=== PATIENT | female | born 1950 | race Caucasian/White ===

== ENCOUNTER 2018-06-23 06:12 | Inpatient (IN) ==
[2018-06-18 12:15] LABS: Appearance,Urine CLEAR; Bilirubin,Urine NEG (NEG); Color,Urine COLORLESS; Glucose,Urine (UA) NEGATIVE (NEG); Leukocyte Esterase,Urine NEG /uL (NEG); Protein,Urine NEG (NEG); Specific Gravity,Urine 1.005 (1.000-1.035); Urine Blood NEG mg/dL (<0.03); Urobilinogen,Urine NEG (NEG)
[2018-06-18 12:27] LABS: Basophils # (Auto) 0.1 K/mcL (0.0-0.3); Eosinophils # (Auto) 0.2 K/mcL (0.0-0.7); Eosinophils % (Auto) 3.1 % (0.0-7.0); Granulocytes % (Auto) 46.6 % (38.0-78.0); Lymphocytes # (Auto) 2.2 K/mcL (1.5-4.8); Lymphocytes % (Auto) 41.3 % (15.5-49.0); Mean Cell Volume 94.4 fL (80.0-100.0); Mean Corpuscular HGB Conc 34.5 g/dL (31.0-36.0); Mean Corpuscular Hemoglobin 32.6 pg (26.0-34.0); Monocytes # (Auto) 0.4 K/mcL (0.1-0.9); Platelet Count 349 K/mcL (140-440); RBC 4.12 M/mcL (4.00-5.20); Red Cell Distribution Width 12.6 % (11.5-14.5)
[2018-06-18 12:41] LABS: Blood Urea Nitrogen 19 mg/dl (8-23)
[2018-06-23] MEDS ORDERED: SCOPOLAMINE 1 PATCH PATCH TOPICAL ONE (06:41)
[2018-06-23] MEDS ORDERED: CELECOXIB 200 MG CAPSULE PO SCH (07:00)
[2018-06-23] MEDS ORDERED: PREGABALIN 75 MG CAPSULE PO SCH (07:00)
[2018-06-23] MEDS ORDERED: oxyCODONE 10 MG TAB.ER.12H PO SCH (07:00)
[2018-06-23] MEDS ORDERED: 0.9 % SODIUM CHLORIDE 9 ML, KETOROLAC 30 MG, ROPIVACAINE HCL/PF 49.5 ML, EPINEPHrine 0.... IJ SCH (07:00)
[2018-06-23] MEDS ORDERED: ceFAZolin 1 GM VIAL IV SCH (07:00)
[2018-06-23] MEDS ORDERED: ACETAMINOPHEN 500 MG TABLET PO SCH (07:00)
[2018-06-23] MEDS ORDERED: ONDANSETRON 4 MG/2 ML VIAL IV ONE (07:45)
[2018-06-23] MEDS ORDERED: fentaNYL 100 MCG/2 ML VIAL IV ONE (07:45)
[2018-06-23] MEDS ORDERED: DEXAMETHASONE 10 MG/ML VIAL IV ONE (07:45)
[2018-06-23] MEDS ORDERED: GLYCOPYRROLATE 0.2 MG/ML VIAL IV ONE (07:45)
[2018-06-23] MEDS ORDERED: MIDAZOLAM 2 MG/2 ML VIAL IV ONE (07:45)
[2018-06-23] MEDS ORDERED: TRANEXAMIC ACID 1,000 MG/10 ML VIAL IV ONE ×2 (07:45→09:23)
[2018-06-23] MEDS ORDERED: PHENYLEPHRINE 10 MG/ML VIAL IV ONE (07:45)
[2018-06-23] MEDS ORDERED: PROPOFOL 200 MG/20 ML VIAL IV ONE (07:45)
[2018-06-23] MEDS ORDERED: KETAMINE 100 MG/ML ML IV ONE (07:45)
[2018-06-23] MEDS ORDERED: LIDOCAINE HCL/PF 100 MG/5 ML SYRINGE IV ONE (07:45)
[2018-06-23] MEDS ORDERED: ROPIVACAINE HCL/PF 20 ML VIAL IJ ONE (07:45)
[2018-06-23] MEDS ORDERED: ePHEDrine 50 MG/ML AMPUL IV ONE (07:45)
[2018-06-23] MEDS ORDERED: GENTAMICIN SULFATE 800 MG/20 ML VIAL IR ONE (08:01)
[2018-06-23] MEDS ORDERED: BISACODYL 10 MG SUPP.RECT PR PRN (09:23)
[2018-06-23] MEDS ORDERED: TEMAZEPAM 15 MG CAPSULE PO PRN (09:23)
[2018-06-23] MEDS ORDERED: FLEETS ADULT ENEMA PR PRN (09:23)
[2018-06-23] MEDS ORDERED: ACETAMINOPHEN 325 MG TABLET PO PRN (09:23)
[2018-06-23] MEDS ORDERED: HYDROcodone/APAP 5/325MG TABLET PO PRN (09:23)
[2018-06-23] MEDS ORDERED: HYDROmorphone 2 MG/ML VIAL IV PRN (09:23)
[2018-06-23] MEDS ORDERED: BENZOCAINE/MENTHOL 1 LOZENGE PO PRN (09:23)
[2018-06-23] MEDS ORDERED: ONDANSETRON 4 MG/2 ML VIAL IV PRN (09:23)
[2018-06-23] MEDS ORDERED: POLYETHYLENE GLYCOL 3350 17 GM PACKET PO PRN (09:23)
[2018-06-23] MEDS ORDERED: ONDANSETRON ODT 4 MG TABLET SL PRN (09:23)
[2018-06-23] MEDS ORDERED: MAGNESIUM HYDROXIDE 30 ML ORAL.SUSP PO PRN (09:23)
[2018-06-23] MEDS ORDERED: ALBUTEROL SULFATE 1 PUFF INHALER INH PRN (09:27)
--- NOTE | 2018-06-23 09:43 | Brief Operative Note ---
Date of procedure: 06/23/18 Pre-op diagnosis: Left knee djd Post-op diagnosis: same Procedure: left knee tka Grafts/Implants: Yes Anesthesia: GETA Complications: none Surgeon: Toni Zelaya Recovery Manager: Yohannes Mullen Estimated blood loss (cc): 50 Tourniquet Time (Minutes): 65 Specimens Removed/Pathology: none sent Condition: stable Disposition: PACU
[2018-06-23] MEDS ORDERED: MEPERIDINE 25 MG/ML SYRINGE IV PRN (09:53)
[2018-06-23] MEDS ORDERED: fentaNYL 100 MCG/2 ML VIAL IV PRN (09:53)
[2018-06-23] MEDS ORDERED: PROMETHAZINE 25 MG/ML VIAL IV PRN ×2 (09:53→14:59)
[2018-06-23] MEDS ORDERED: IPRATROPIUM/ALBUTEROL 3 ML AMPUL.NEB NEB PRN (09:53)
[2018-06-23] MEDS ORDERED: METHOCARBAMOL 1,000 MG/10 ML VIAL IV PRN (09:53)
[2018-06-23] MEDS ORDERED: LACTATED RINGERS 1,000 ML IV SCH (10:00)
--- NOTE | 2018-06-23 10:39 | XRay Report ---
CLINICAL INFORMATION: Post-Op Total Knee COMPARISON: None. FINDINGS: Total knee prostheses is anatomically aligned. No osseous abnormality. Periarticular gas and soft tissue swelling seen as as expected IMPRESSION: Negative Interpreted and Authenticated by: Javier Menjivar 06/23/18
[2018-06-23] MEDS: 0.45 % SODIUM CHLORIDE 1,000 ML IV SCH ×2 (10:40→20:53)
--- NOTE | 2018-06-23 11:02 | Operative Note ---
DATE OF OPERATION: 06/23/2018 PREOPERATIVE DIAGNOSIS: Left knee degenerative arthritis. POSTOPERATIVE DIAGNOSIS: Left knee degenerative arthritis. PROCEDURE: Left total knee arthroplasty. SURGEON: Toni Zelaya M.D. NEWSPAPER EDITOR MANAGING: Yohannes Mullen PA-C. ANESTHESIA: General LMA anesthesia. COMPLICATIONS: None. TOURNIQUET TIME: Approximately 65 minutes. DESCRIPTION OF PROCEDURE: The patient was brought to the operating room, put to sleep with general LMA anesthesia. A timeout was performed confirming the operative site. Preop antibiotics and tranexamic acid given. Midline incision was made and midvastus approach. We opened the knee and showed severe arthritis in the medial compartment to be [id number], intact ACL and PCL, and severe arthritis of patellofemoral groove. With bone exposed in the patellofemoral groove and medial compartment arthritis, we proceeded with a total knee arthroplasty. We then brought in the robot, registered the center of hip rotation after placing pins above and below the knee, registered thirty points on the femur and the tibia. I balanced the knee, both at 90 degrees and 15 degrees of flexion, removed osteophytes and placed intraarticular pins. We registered the pins, registered the robot and then brought the robot in to make the cuts. We made the tibial cut and then the femoral cuts. We then trialed the components after removing the bone fragments and remnants of the meniscus. A size 3 component seemed to fit very well with 9 mm poly. This balanced the knee very well. We trialed an 11. This was too tight. We irrigated thoroughly and cemented into place the femur and the tibia. Excess cement was removed. We placed a 9 mm poly with a 33 mm patellar button. The patella measured a total thickness of 22 mm. This was cut to 14 mm and then cemented into place the patella. The patient tolerated this well. There was no complication. We irrigated and took the patient through range of motion once the cement was dried. Midvastus approach was closed with #1 Stratafix. Skin was closed with Stratafix and adhesive closure. Sterile bandage applied. RBH:larry Job ID: [id number] Doc ID: [id number] Toni Zelaya MD
[2018-06-23] MEDS: ACETAMINOPHEN 500 MG TABLET PO SCH ×3 (11:30→21:33)
[2018-06-23] MEDS: KETOROLAC 15 MG/ML VIAL IV SCH ×3 (12:16→23:55)
[2018-06-23] MEDS: ceFAZolin 1 GM VIAL IV SCH ×2 (14:00→20:53)
[2018-06-23] MEDS: 0.9 % SODIUM CHLORIDE 10 ML SYRINGE IV SCH ×2 (14:09→20:54)
[2018-06-23] MEDS: OMEPRAZOLE 20 MG CAPSULE PO SCH (17:26)
[2018-06-23] MEDS: DOCUSATE SODIUM 100 MG CAPSULE PO SCH (20:53)
[2018-06-23] MEDS: ASPIRIN 325 MG ENTERIC COATED TABLET PO SCH (20:53)
[2018-06-23] MEDS ORDERED: SENNOSIDES 1 TABLET PO SCH (21:00)
[2018-06-24] MEDS: ACETAMINOPHEN 500 MG TABLET PO SCH ×2 (04:14→11:41)
[2018-06-24] MEDS: KETOROLAC 15 MG/ML VIAL IV SCH ×2 (05:47→11:41)
[2018-06-24] MEDS: 0.9 % SODIUM CHLORIDE 10 ML SYRINGE IV SCH (05:48)
[2018-06-24] MEDS: OMEPRAZOLE 20 MG CAPSULE PO SCH (05:56)
[2018-06-24] MEDS ORDERED: LEVOTHYROXINE 125 MCG TABLET PO SCH (07:30)
[2018-06-24] MEDS: 0.45 % SODIUM CHLORIDE 1,000 ML IV SCH (07:47)
--- NOTE | 2018-06-24 07:54 | Orthopedic Progress Note ---
Subjective Patient information: Note initiated : 06/24/18 at 7:53 am Service Date, if different from initiated Date: [] Patient: Tricia Burns 68 y/o F admitted on 06/23/18 for Left Medial Ravi Uni Knee Arthroplasty Possible. Chief Complaint: [Pt is stable this morning on post operative day 2 without any significant concerns or complaints. Patients vital signs have remained stable. Patients dressing is dry and is grossly instact from a neurovascular and motor standpoint. Patients 10 point ROS is otherwise negative. ] Objective Vital signs: Vital Signs Temp Pulse Resp BP BP Pulse Ox 06/24/18 07:00 98.8 F 67 18 93/47 93 06/24/18 04:32 90 06/24/18 04:00 98 F 68 17 95/57 90 06/24/18 01:25 93 06/24/18 00:00 97.4 F 64 18 95/51 93 06/23/18 22:00 91 06/23/18 20:00 98 F 72 17 111/67 91 06/23/18 17:33 96 06/23/18 15:49 97.2 F 18 103/56 90 06/23/18 14:00 96 06/23/18 13:33 99/53 93 06/23/18 12:33 105/56 98 06/23/18 12:03 117/68 93 06/23/18 12:00 97.3 F 90 18 117/68 96 06/23/18 11:32 119/61 93 06/23/18 11:17 111/68 93 06/23/18 11:01 124/77 91 06/23/18 10:47 97.1 F 74 18 108/63 108/63 96 06/23/18 10:33 115/62 90 06/23/18 10:27 97.4 F 88 17 116/55 97 06/23/18 10:13 97.8 F 83 15 114/49 98 06/23/18 10:08 84 14 109/50 94 06/23/18 10:03 92 H 17 115/54 100 06/23/18 09:58 97.5 F 90 13 108/50 96 06/23/18 09:53 90 15 117/48 92 06/23/18 09:48 81 15 103/49 91 06/23/18 09:43 97.8 F 85 13 108/34 91 Intake and Output 06/23/18 06/24/18 06/24/18 21:59 05:59 13:59 Intake Total 2360 / 2360 895 / 895 1000 / 1000 Output Total 1260 / 1260 450 / 450 Balance 1100 / 1100 445 / 445 1000 / 1000 Intake: IV 1000 / 1000 1000 / 1000 Sodium Chloride 0.45% 1,000 ml 1000 / 1000 1000 / 1000 @ 100 mls/hr IV .Q10H MICKEY Rx#: [id number] Oral 1360 / 1360 895 / 895 Output: Void Amount 800 / 800 450 / 450 Emesis 460 / 460 Other: Meal chicken noodle soup, cranberry juice Percent of Meal Consumed 100% Feeding Ability Independent # Voids 1 1 Weight 202 lb 14.4 oz Intake & Output: Intake & Output 06/23/18 06/24/18 06/24/18 21:59 05:59 13:59 Intake Total 2360 / 2360 895 / 895 1000 / 1000 Output Total 1260 / 1260 450 / 450 Balance 1100 / 1100 445 / 445 1000 / 1000 Weight 202 lb 14.4 oz Intake: IV 1000 / 1000 1000 / 1000 Sodium Chloride 0.45% 1,000 ml 1000 / 1000 1000 / 1000 @ 100 mls/hr IV .Q10H IMCKEY Rx#: [id number] Oral 1360 / 1360 895 / 895 Output: Void Amount 800 / 800 450 / 450 Emesis 460 / 460 Other: Meal chicken noodle soup, cranberry juice Percent of Meal Consumed 100% Feeding Ability Independent # Voids 1 1 Incision: Yes healing Incision clean and dry: Yes Weight bearing status: full Neurological exam IM: Yes motor sensory intact, Yes neurovascular intact Extremities exam IM: Yes Foot pink and warm, Yes neurovascular intact - Labs CBC & BMP: 06/24/18 04:20 06/18/18 10:51 Labs: Orthopedic Labs 06/18/18 10:51 PT 13.2 INR 1.0 APTT 32 06/24/18 06/18/18 04:20 10:51 Hgb 13.4 Hct 32.7 L 38.9 Assessment and Plan (1) Hx of total knee arthroplasty The patient has been educated regarding dressing care, Physical Therapy recommendations, home exercises, restrictions, and follow up appointments. The patient has had all necessary DME prescribed. The patient has remained relatively stable during their hospital course. Status: Acute
--- NOTE | 2018-06-24 07:56 | Discharge Summary ---
Ortho Discharge - TKA - Patient Instructions Diet: Regular Diet Activity: activity as tolerated, weight bearing as tolerated Total Knee Protocol: For Total Knee: Start ROM RACHEL with stationary bike or rocking chair. Work on gaining full extension of knee. Posterior dislocation precautions provided. Hip abductor strengthening and gait training instructions provided. Apply Cryocuff as instructed. Dressing Care: May shower in 2 days - Problem Maintenance (1) Hx of total knee arthroplasty Status: Acute - Follow Up Plan Follow Up Appointments: Toni Zelaya MD [Physician] - 07/08/18 10:40 am Disposition: Home, Self-Care Prognosis: Good Rehab Potential: Good I certify that the patient requires SNF services: No Overall status at discharge: patient is progressing back to baseline - Orders For Discharge Prescriptions: Aspirin [Ecotrin] 325 mg PO BID #60 tab.ec Docusate Sodium [Colace] 100 mg PO BID #60 cap HYDROcodone/APAP 5/325MG [[place] 5-325Mg] 1 - 2 tab PO Q4HP PRN #75 tab PRN Reason: Pain Level 3-6
[2018-06-24] MEDS: ASPIRIN 325 MG ENTERIC COATED TABLET PO SCH (08:52)
[2018-06-24] MEDS: DOCUSATE SODIUM 100 MG CAPSULE PO SCH (08:52)
[2018-06-24] MEDS ORDERED: HYDROCHLOROTHIAZIDE 12.5 MG CAPSULE PO SCH (09:00)
[2018-06-24] MEDS ORDERED: LISINOPRIL 20 MG TABLET PO SCH (09:00)
[2018-06-24] MEDS ORDERED: LORATADINE 10 MG TABLET PO SCH (09:00)
== END 2018-06-24 14:00 | disposition home or self-care (01) | DRG 470 ==
LOC: SUR 06:12 → MEDSUR 10:30
PROVIDERS: ADMIT Orthopaedic Surgery; ATTEND Orthopaedic Surgery

== ENCOUNTER 2018-11-04 06:08 | Inpatient (IN) ==
[2018-10-30 11:57] LABS: Basophils # (Auto) 0.1 K/mcL (0.0-0.3); Basophils % (Auto) 0.9 % (0.0-2.0); Eosinophils # (Auto) 0.2 K/mcL (0.0-0.7); Eosinophils % (Auto) 3.1 % (0.0-7.0); Granulocytes % (Auto) 51.7 % (38.0-78.0); Lymphocytes # (Auto) 1.9 K/mcL (1.5-4.8); Lymphocytes % (Auto) 33.5 % (15.5-49.0); Mean Cell Volume 92.3 fL (80.0-100.0); Mean Corpuscular HGB Conc 35.3 g/dL (31.0-36.0); Mean Corpuscular Hemoglobin 32.6 pg (26.0-34.0); Monocytes # (Auto) 0.6 K/mcL (0.1-0.9); Monocytes % (Auto) 10.8 % (1.0-12.0); Platelet Count 390 K/mcL (140-440); RBC 4.21 M/mcL (4.00-5.20); Red Cell Distribution Width 12.4 % (11.5-14.5)
[2018-10-30 12:02] LABS: Appearance,Urine CLEAR; Bilirubin,Urine NEG (NEG); Color,Urine STRAW; Glucose,Urine (UA) NEGATIVE (NEG); Leukocyte Esterase,Urine NEG /uL (NEG); Protein,Urine NEG (NEG); Urine Blood NEG mg/dL (<0.03); Urobilinogen,Urine NEG (NEG)
[2018-10-30 13:27] LABS: Blood Urea Nitrogen 18 mg/dl (8-23)
[2018-11-04] MEDS ORDERED: SCOPOLAMINE 1 PATCH PATCH TOPICAL ONE (06:30)
[2018-11-04] MEDS ORDERED: 0.9 % SODIUM CHLORIDE 9 ML, KETOROLAC 30 MG, ROPIVACAINE HCL/PF 49.5 ML, EPINEPHrine 0.... IJ SCH (07:00)
[2018-11-04] MEDS ORDERED: ACETAMINOPHEN 500 MG TABLET PO SCH (07:00)
[2018-11-04] MEDS ORDERED: PREGABALIN 75 MG CAPSULE PO SCH (07:00)
[2018-11-04] MEDS ORDERED: oxyCODONE 10 MG TAB.ER.12H PO SCH (07:00)
[2018-11-04] MEDS ORDERED: CELECOXIB 200 MG CAPSULE PO SCH (07:00)
[2018-11-04] MEDS ORDERED: ceFAZolin 1 GM VIAL IV SCH (07:00)
[2018-11-04] MEDS ORDERED: ONDANSETRON 4 MG/2 ML VIAL IV ONE (09:35)
[2018-11-04] MEDS ORDERED: PROPOFOL 200 MG/20 ML VIAL IV ONE (09:35)
[2018-11-04] MEDS ORDERED: diphenhydrAMINE 50 MG/ML VIAL IV ONE (09:35)
[2018-11-04] MEDS ORDERED: ROPIVACAINE HCL/PF 20 ML VIAL IJ ONE (09:35)
[2018-11-04] MEDS ORDERED: DEXAMETHASONE 10 MG/ML VIAL IV ONE (09:35)
[2018-11-04] MEDS ORDERED: LIDOCAINE HCL/PF 100 MG/5 ML SYRINGE IV ONE (09:35)
[2018-11-04] MEDS ORDERED: TRANEXAMIC ACID 1,000 MG/10 ML VIAL IV ONE ×2 (09:35→11:02)
[2018-11-04] MEDS ORDERED: fentaNYL 100 MCG/2 ML VIAL IV ONE (09:35)
[2018-11-04] MEDS ORDERED: MIDAZOLAM 5 MG/5 ML VIAL IV ONE (09:35)
[2018-11-04] MEDS ORDERED: GLYCOPYRROLATE 0.2 MG/ML VIAL IV ONE (09:35)
[2018-11-04] MEDS ORDERED: KETAMINE 100 MG/ML ML IV ONE (09:35)
[2018-11-04] MEDS ORDERED: PHENYLEPHRINE 10 MG/ML VIAL IV ONE (09:35)
[2018-11-04] MEDS ORDERED: GENTAMICIN SULFATE 800 MG/20 ML VIAL IR ONE (10:08)
[2018-11-04] MEDS ORDERED: BUPIVACAINE 0.5% 50 ML VIAL IJ ONE (10:20)
[2018-11-04] MEDS ORDERED: DEXAMETHASONE 10 MG/ML VIAL IM ONE (10:20)
[2018-11-04] MEDS ORDERED: TRIAMCINOLONE ACETONIDE 40 MG/ML VIAL INTRAARTIC ONE (10:20)
[2018-11-04] MEDS ORDERED: ACETAMINOPHEN 1,000 MG/100 ML BOTTLE IV ONE (10:36)
[2018-11-04] MEDS ORDERED: NALOXONE HCL 0.4 MG/ML VIAL IV PRN (10:36)
[2018-11-04] MEDS ORDERED: FLUMAZENIL 0.1 MG/ML ML IV PRN (10:36)
[2018-11-04] MEDS ORDERED: fentaNYL 100 MCG/2 ML VIAL IV PRN (10:36)
[2018-11-04] MEDS ORDERED: ONDANSETRON 4 MG/2 ML VIAL IV PRN ×2 (10:36→11:02)
[2018-11-04] MEDS ORDERED: METHOCARBAMOL 1,000 MG/10 ML VIAL IV PRN (10:36)
[2018-11-04] MEDS ORDERED: HYDROmorphone 2 MG/ML VIAL IV PRN ×2 (10:36→11:02)
[2018-11-04] MEDS ORDERED: IPRATROPIUM/ALBUTEROL 3 ML AMPUL.NEB NEB PRN (10:36)
[2018-11-04] MEDS ORDERED: MEPERIDINE 25 MG/ML SYRINGE IV PRN (10:36)
[2018-11-04] MEDS ORDERED: LACTATED RINGERS 250 ML IV PRN (10:36)
[2018-11-04] MEDS ORDERED: BENZOCAINE/MENTHOL 1 LOZENGE PO PRN ×2 (10:36→11:02)
[2018-11-04] MEDS ORDERED: LACTATED RINGERS 1,000 ML IV SCH (10:45)
[2018-11-04] MEDS ORDERED: FLEETS ADULT ENEMA PR PRN (11:02)
[2018-11-04] MEDS ORDERED: BISACODYL 10 MG SUPP.RECT PR PRN (11:02)
[2018-11-04] MEDS ORDERED: ACETAMINOPHEN 325 MG TABLET PO PRN (11:02)
[2018-11-04] MEDS ORDERED: MAGNESIUM HYDROXIDE 30 ML ORAL.SUSP PO PRN (11:02)
[2018-11-04] MEDS ORDERED: POLYETHYLENE GLYCOL 3350 17 GM PACKET PO PRN (11:02)
[2018-11-04] MEDS ORDERED: TEMAZEPAM 15 MG CAPSULE PO PRN (11:02)
--- NOTE | 2018-11-04 11:02 | Brief Operative Note ---
Date of procedure: 11/04/18 Pre-op diagnosis: left knee djd severe Post-op diagnosis: same Procedure: lefty tka Grafts/Implants: Yes Anesthesia: GETA Complications: none Surgeon: Toni Zelaya Photostatic Copy Maker: Yohannes Mullen Estimated blood loss (cc): 50 Tourniquet Time (Minutes): 52 Specimens Removed/Pathology: none sent Condition: stable Disposition: PACU
[2018-11-04] MEDS ORDERED: ACETAMINOPHEN 500 MG TABLET PO PRN (11:05)
[2018-11-04] MEDS ORDERED: ALBUTEROL SULFATE 1 PUFF INHALER INH PRN (11:05)
[2018-11-04] MEDS ORDERED: DOCUSATE SODIUM 100 MG CAPSULE PO PRN (11:05)
[2018-11-04] MEDS ORDERED: LORATADINE 10 MG TABLET PO PRN (11:05)
--- NOTE | 2018-11-04 11:35 | Operative Note ---
DATE OF OPERATION: 11/04/2018 PREOPERATIVE DIAGNOSIS: Right knee degenerative arthritis. POSTOPERATIVE DIAGNOSIS: Right knee degenerative arthritis. PROCEDURE: Right total knee arthroplasty, robotic-assisted. SURGEON: Toni Zelaya MD ACTOR UNDERSTUDY: Yohannes Mullen PA-C ANESTHESIA: General LMA anesthesia. COMPLICATIONS: None. IMPLANTS PLACED: A size 3 femur and size 3 tibial baseplate from [employer] with a 9 mm poly. These were cemented components with a 33 mm cemented patellar button. ESTIMATED BLOOD LOSS: 50 mL TOURNIQUET TIME: Approximately 52 minutes. DESCRIPTION OF PROCEDURE: The patient was brought to the operating room and put to sleep with general LMA anesthesia. Once asleep, the patient had the right knee sterilely prepped and draped in the usual sterile fashion. Once done, we then made a midline incision, a mid vastus approach performed. Once done, we then placed the pins above and below the knee and registered the center of hip rotation. Once the center of hip rotation was set, the registration of the thirty points in the joint and the intraarticular pin was confirmed. We balanced the knee at 90 and 15 degrees. We then brought in the robot and made the bony cuts. This balanced perfectly as preoperatively planned. I then trialed the components size 3 femur, size 3 tibial baseplate with a 9 mm poly on the right knee. These all matched perfectly. The patella was resurfaced with a 33 mm patellar on the right knee. There were no complications. After this all fit very nicely we let the skin dry, removed any excess cement and did thorough irrigation. We then closed the mid vastus approach with #1 Stratafix x2, closed the skin with #1 Stratafix and 2-0 Vicryl and adhesive closure. There were no complications. We put a sterile bandage on the knee. RBH:jaclyn Job ID: [id number] Doc ID: [id number] Toni Zelaya MD
--- NOTE | 2018-11-04 11:50 | XRay Report ---
CLINICAL INFORMATION: post-op COMPARISON: None. FINDINGS: Total knee prostheses is anatomically aligned. No osseous normality. Soft tissues swelling seen as expected. IMPRESSION: Negative Interpreted and Authenticated by: Javier Menjivar 11/04/18
[2018-11-04] MEDS: KETOROLAC 15 MG/ML VIAL IV SCH ×3 (12:11→23:41)
[2018-11-04] MEDS: 0.45 % SODIUM CHLORIDE 1,000 ML IV SCH ×2 (12:12→22:27)
[2018-11-04] MEDS: ceFAZolin 1 GM VIAL IV SCH ×2 (14:56→21:42)
[2018-11-04] MEDS: 0.9 % SODIUM CHLORIDE 10 ML SYRINGE IV SCH ×2 (14:56→20:51)
--- NOTE | 2018-11-04 16:25 | Discharge Summary ---
Ortho Discharge - TKA - Patient Instructions Diet: Regular Diet Activity: activity as tolerated, weight bearing as tolerated Total Knee Protocol: For Total Knee: Start ROM RACHEL with stationary bike or rocking chair. Work on gaining full extension of knee. Posterior dislocation precautions provided. Hip abductor strengthening and gait training instructions provided. Apply Cryocuff as instructed. Dressing Care: May shower in 2 days - Follow Up Plan Follow Up Appointments: Yohannes Mullen PA-C [Physician Wire Temperer] - Disposition: Home, Self-Care Prognosis: Good Rehab Potential: Good I certify that the patient requires SNF services: No Overall status at discharge: patient is progressing back to baseline - Orders For Discharge Prescriptions: Aspirin [Ecotrin] 325 mg PO BID #60 tab.ec Docusate Sodium [Colace] 100 mg PO BID #60 cap HYDROcodone/APAP 10/325MG [[place] 10-325Mg] 1 - 2 tab PO Q4HP PRN #75 tab PRN Reason: Pain Level 3-6
[2018-11-04] MEDS: OMEPRAZOLE 20 MG CAPSULE PO SCH (17:33)
[2018-11-04] MEDS: ASPIRIN 325 MG ENTERIC COATED TABLET PO SCH (20:51)
[2018-11-04] MEDS: DOCUSATE SODIUM 100 MG CAPSULE PO SCH (20:51)
[2018-11-04] MEDS: HYDROcodone/APAP 10/325MG TABLET PO PRN (20:51)
[2018-11-04] MEDS ORDERED: SENNOSIDES 1 TABLET PO SCH (21:00)
[2018-11-05] MEDS: HYDROcodone/APAP 10/325MG TABLET PO PRN ×2 (04:26→09:40)
[2018-11-05] MEDS: KETOROLAC 15 MG/ML VIAL IV SCH (05:22)
[2018-11-05] MEDS: 0.9 % SODIUM CHLORIDE 10 ML SYRINGE IV SCH (05:23)
[2018-11-05] MEDS: OMEPRAZOLE 20 MG CAPSULE PO SCH (06:52)
[2018-11-05] MEDS: 0.45 % SODIUM CHLORIDE 1,000 ML IV SCH (07:10)
--- NOTE | 2018-11-05 07:18 | Orthopedic Progress Note ---
Subjective Patient information: Note initiated : 11/05/18 at 7:17 am Service Date, if different from initiated Date: [] Patient: Tricia Burns 68 y/o F admitted on 11/04/18 for Right Robotic Total Knee Arthroplasty . Chief Complaint: [Pt is stable this morning on post operative day 1 without any significant concerns or complaints. Patients vital signs have remained stable. Patients dressing is dry and is grossly intact from a neurovascular and motor standpoint. Patients 10 point ROS is otherwise negative. ] Objective Vital signs: Vital Signs Temp Pulse Pulse Resp BP BP Pulse Ox 11/05/18 07:09 98.2 F 20 93/57 92/56 92 11/05/18 04:00 98.3 F 58 L 20 90/52 92 11/05/18 00:00 97.8 F 63 20 97/54 94 11/04/18 19:48 97.4 F 62 24 H 102/53 90 11/04/18 16:00 97.6 F 66 132/73 92 11/04/18 13:31 88 105/64 98 11/04/18 13:01 68 102/83 97 11/04/18 12:46 92 H 104/88 96 11/04/18 12:30 70 103/50 96 11/04/18 12:15 78 100/52 95 11/04/18 12:01 83 119/50 99 11/04/18 12:00 86 16 95 11/04/18 11:46 96.9 F L 84 19 122/40 98 11/04/18 11:30 82 15 105/45 98 11/04/18 11:25 91 H 16 81/48 109/58 100 11/04/18 11:20 74 16 109/43 100 11/04/18 11:14 97.1 F 91 H 16 109/43 100 11/04/18 07:54 97.5 F 86 18 130/67 93 Intake and Output 11/04/18 11/05/18 11/05/18 21:59 05:59 13:59 Intake Total 1760 / 1760 1150 / 1150 Output Total 1850 / 1850 1575 / 1575 Balance -90 / -90 -425 / -425 Intake: IV 1000 / 1000 Sodium Chloride 0.45% 1,000 ml 1000 / 1000 @ 100 mls/hr IV .Q10H MICKEY Rx#: [id number] Oral 1760 / 1760 150 / 150 Output: Void Amount 1850 / 1850 1575 / 1575 Other: Meal Dinner Percent of Meal Consumed 100% Feeding Ability Independent Urine Appearance Clear Clear Urine Color Pale Pale Urine Odor Normal Normal Weight 208 lb Intake & Output: Intake & Output 11/04/18 11/05/18 11/05/18 21:59 05:59 13:59 Intake Total 1760 / 1760 1150 / 1150 Output Total 1850 / 1850 1575 / 1575 Balance -90 / -90 -425 / -425 Weight 208 lb Intake: IV 1000 / 1000 Sodium Chloride 0.45% 1,000 ml 1000 / 1000 @ 100 mls/hr IV .Q10H MICKEY Rx#: [id number] Oral 1760 / 1760 150 / 150 Output: Void Amount 1850 / 1850 1575 / 1575 Other: Meal Dinner Percent of Meal Consumed 100% Feeding Ability Independent Urine Appearance Clear Clear Urine Color Pale Pale Urine Odor Normal Normal Incision: Yes healing Incision clean and dry: Yes Dressing: Yes clean Weight bearing status: full Neurological exam IM: Yes motor sensory intact, Yes neurovascular intact Extremities exam IM: Yes Foot pink and warm, Yes neurovascular intact - Labs CBC & BMP: 11/05/18 04:20 10/30/18 09:38 Labs: Orthopedic Labs 10/30/18 09:38 PT 12.7 INR 1.0 APTT 33 11/05/18 10/30/18 04:20 09:38 Hgb 13.7 Hct 33.0 L 38.9 Assessment and Plan (1) Hx of total knee arthroplasty Leave Dermabond patch intact until followup Status: Acute
[2018-11-05] MEDS ORDERED: LEVOTHYROXINE 125 MCG TABLET PO SCH (07:30)
[2018-11-05] MEDS: DOCUSATE SODIUM 100 MG CAPSULE PO SCH (08:11)
[2018-11-05] MEDS: ASPIRIN 325 MG ENTERIC COATED TABLET PO SCH (08:11)
[2018-11-05] MEDS ORDERED: MAGNESIUM OXIDE 400 MG TABLET PO SCH (09:00)
[2018-11-05] MEDS ORDERED: LISINOPRIL/HCTZ 20/12.5MG TABLET PO SCH (09:00)
[2018-11-05] MEDS ORDERED: CALCIUM (OYSTER SHELL) 500 MG TABLET PO SCH (09:00)
[2018-11-05] MEDS ORDERED: LISINOPRIL 20 MG TABLET PO SCH (09:00)
[2018-11-05] MEDS ORDERED: HYDROCHLOROTHIAZIDE 12.5 MG CAPSULE PO SCH (09:00)
== END 2018-11-05 09:57 | disposition home or self-care (01) | DRG 554 ==
LOC: MEDSUR 06:08
PROVIDERS: ADMIT Orthopaedic Surgery; ATTEND Orthopaedic Surgery
PROC: [UNRECOGNIZED PROCEDURE] (2018-11-04 09:31)
CPT/HCPCS: 97161

== ENCOUNTER 2019-10-15 12:07 | Inpatient (IN) ==
--- NOTE | 2019-10-15 12:18 | Emergency Department Note ---
General Adult HPI - General Chief complaint: Recheck/Abnormal Lab/Rx Stated complaint: post CPR Time Seen by Provider: 10/15/19 12:11 Source: patient Mode of arrival: ambulatory Limitations: no limitations - History of Present Illness HPI Narrative: This patient was down in the OR being induced for foot surgery when there was concern that she had developed PEA. They could not feel pulses but her monitor rhythm continued and a chronic left bundle branch pattern. She did receive 2 minutes of compressions and a dose of epinephrine and atropine. She was intubated, bagged and seemed to respond. She is brought down to the ER now for further evaluation before admission. She is still sedated from the induction. - Related Data Home Medications Medication Instructions Recorded Confirmed Acetaminophen [Tylenol Extra 500 mg PO Q6HP PRN 06/18/18 10/15/19 Strength] Albuterol Sulfate [Ventolin] 1 puff INH Q4HP PRN 06/18/18 10/15/19 Levothyroxine [Synthroid] 100 mcg PO DAILY 06/18/18 10/15/19 Loratadine [Claritin] 10 mg PO DAILYP PRN 06/18/18 10/15/19 Omeprazole [Prilosec] 40 mg PO AC 06/18/18 10/15/19 Calcium (Oyster Shell) [Oscal] 500 mg PO DAILY 10/30/18 10/15/19 Docusate Sodium [Colace] 100 mg PO BIDP PRN 10/30/18 10/15/19 Magnesium Oxide 400 mg PO DAILY 10/30/18 10/15/19 Lisinopril [Zestril] 20 mg PO DAILY 10/13/19 10/15/19 Red Yeast Rice 1,200 mg PO DAILY 10/13/19 10/15/19 Allergies Allergy/AdvReac Type Severity Reaction Status Date / Time egg Allergy Severe Anaphylaxis Verified 10/15/19 12:15 cinnamon Allergy Mild Swelling Verified 10/15/19 12:15 iodine Allergy Mild Other Verified 10/15/19 12:15 Tetracyclines Allergy Mild Hives Verified 10/15/19 12:15 codeine AdvReac Mild Itching Verified 10/15/19 12:15 walnut AdvReac Mild Blister Verified 10/15/19 12:15 Review of Systems All systems ED: reviewed and negative except as stated. Past Medical History - Past Medical History Surgical history ED: Reports: orthopedic, other - Social History smoking status: Never smoker Physical Exam Limitations: no limitations General appearance: alert Head: atraumatic Eye: Present: normal appearance ENT: Present: normal exam Neck: Present: normal inspection Chest: Present: normal inspection Respiratory: Present: normal lung sounds bilaterally Cardiovascular: Present: regular rate, normal rhythm, normal heart sounds Abdominal: Present: soft. Absent: distention, tenderness Neurological: Present: alert Psychiatric: Present: normal affect Skin: Present: warm, dry Course Vital Signs Temperature 96.6 F L 10/15/19 12:08 Pulse Rate 124 H 10/15/19 12:08 Respiratory Rate 20 10/15/19 12:08 Blood Pressure 177/108 10/15/19 12:08 Pulse Oximetry (%) 97 10/15/19 12:08 Temperature 96.6 F L 10/15/19 12:08 Pulse Rate 80 10/15/19 15:12 Respiratory Rate 18 10/15/19 15:12 Blood Pressure 134/81 10/15/19 15:12 Pulse Oximetry (%) 100 10/15/19 15:12 Medical Decision Making - [facility] Narrative Medical decision making narrative: This patient is awake but a little bit confused. CT and labs were unremarkable. She will be admitted to the hospital by Dr. Justin. - Lab Data Lab results reviewed: Yes I reviewed the patient's lab results. - Radiology Data Radiology results reviewed: Yes I reviewed the patient's radiology results. Disposition Pt seen by CONTACT CENTER SPECIALIST/PA only: No Clinical Impression: Cardiopulmonary arrest Disposition: Xfer As Inpt ([facility]) Condition: Good Referrals: Allison Cotton ARNP [Primary Care Provider] - Time of Disposition: 15:30
--- NOTE | 2019-10-15 12:46 | XRay Report ---
HISTORY: Follow-up after intraoperative CPR FINDINGS: There is mild haziness in the lung parenchyma bilaterally and the pulmonary vessels are mildly engorged. This may be fluid overload or mild pulmonary vascular congestion. The heart is borderline enlarged but magnified by portable technique. There is no consolidating infiltrate, pneumothorax, pleural effusion or evidence of aspiration. IMPRESSION: Fluid overload versus mild pulmonary vascular congestion Interpreted and Authenticated by: Pollo Yanez 10/15/19
--- NOTE | 2019-10-15 13:42 | Cat Scan Report ---
History: Confusion, arising after CPR performed in the operating room TECHNIQUE: The brain was imaged without contrast at 2.5 mm intervals. The radiation exposure was limited using dose reduction technology. FINDINGS: The brain appears normal without evidence of hemorrhage, infarct, edema or mass effect. The ventricles and cisterns are normal. There is very little degenerative change. No abnormal extra-axial fluid collection is present. Patient has small air-fluid level in the left maxillary sinus and there is moderate right ethmoid sinusitis. IMPRESSION: Normal brain Dr. Saba was called with the results Interpreted and Authenticated by: Pollo Yanez 10/15/19
--- NOTE | 2019-10-15 15:08 | Event Note ---
Followed up with patient, brother, and accompanying friend in the emergency room. Family and friend updated regarding events in the operating room and current plan of care. Patient more awake than previous but remains intermittently confused and unable to recognize friend. Patient able to state name and date of . Dr. Saba again updated regarding cardiac rhythm changes that resulted after desaturation and subsequent events of ACLS. Please see anesthesia record for detailed note.
--- NOTE | 2019-10-15 16:05 | Internal Med History&Physical ---
Medical - H&P: [facility] Patient information: Note initiated : 10/15/19 at 3:55 pm Service Date, if different from initiated Date: [] Patient: Tricia Burns a 69 y/o F admitted on for Post CPR. Chief Complaint: [] History of present illness: Ms. Burns is a 69 year old F Transferred from the OR to the ED for PEA arrest. Patient was undergoing induction anesthesia and airway was being placed and it sounds like there was some difficulty with placement and laryngospasm and then patient lost pulse while cardiac rhythm maintained on monitor. CPR was initiated for 2-3 minutes, given atropine and epinephrine with ROSC. She was intubated during code and eventually extubated prior to transfer to ED. Laboratory work was done troponin and CK-MB were unremarkable. EKG did show some T wave inversions in the lateral leads, which improved on follow-up EKG in the ED. Chest x-ray with some pulmonary vascular congestion otherwise unremarkable. CT brain unremarkable. She gradually came to and in the ER when I visited her she was completely awake oriented and back to baseline. She is having some chest wall discomfort from the CPR but otherwise no other chest pain. No shortness of breath. No headache nausea vomiting. She does have a sore throat but no other complaints Patient denies any cardiac history. Review of Systems: Pertinent positives as above. Denies headache/fever/chills/nausea/vomiting/abdominal pain/cough/dyspnea/diarrhea. Many 10 point review of system reviewed negative. Medical - H&P: PMH Medical history: Past medical history: Hypertension GERD Hypothyroidism Past surgical history: Bilateral total knee arthroplasty Hysterectomy Right foot Tonsillectomy Family history: Father heart disease and of an AL at 58 Mother had heart disease Social history: Patient denies tobacco or alcohol lives by herself Medical - H&P: Meds Home Medications Medication Instructions Recorded Confirmed Type Acetaminophen [Tylenol Extra 500 mg PO Q6HP PRN 06/18/18 10/15/19 History Strength] Albuterol Sulfate [Ventolin] 1 puff INH Q4HP PRN 06/18/18 10/15/19 History Levothyroxine [Synthroid] 100 mcg PO DAILY 06/18/18 10/15/19 History Loratadine [Claritin] 10 mg PO DAILYP PRN 06/18/18 10/15/19 History Omeprazole [Prilosec] 40 mg PO AC 06/18/18 10/15/19 History Calcium (Oyster Shell) [Oscal] 500 mg PO DAILY 10/30/18 10/15/19 History Docusate Sodium [Colace] 100 mg PO BIDP PRN 10/30/18 10/15/19 History Magnesium Oxide 400 mg PO DAILY 10/30/18 10/15/19 History Lisinopril [Zestril] 20 mg PO DAILY 10/13/19 10/15/19 History Red Yeast Rice 1,200 mg PO DAILY 10/13/19 10/15/19 History Allergies Allergy/AdvReac Type Severity Reaction Status Date / Time egg Allergy Severe Anaphylaxis Verified 10/15/19 12:15 cinnamon Allergy Mild Swelling Verified 10/15/19 12:15 iodine Allergy Mild Other Verified 10/15/19 12:15 Tetracyclines Allergy Mild Hives Verified 10/15/19 12:15 codeine AdvReac Mild Itching Verified 10/15/19 12:15 walnut AdvReac Mild Blister Verified 10/15/19 12:15 Medical - H&P: Exam - Constitutional Vitals: Temp Pulse Resp BP Pulse Ox 96.6 F L 89 16 146/78 98 10/15/19 12:08 10/15/19 15:43 10/15/19 15:43 10/15/19 15:43 10/15/19 15:43 Exam: General: Alert, Awake, No acute Distress, obese Eyes/N/T: EOMI, PEERL, Head/Neck: neck supple, normocephalic atraumatic CV: RRR, No murmurs, normal s1/s2 Pulm: Clear b/l, no wheezing/rhonchi/rales Abd: soft, nontender, +BS x4 Ext: no clubbing/cyanosis/edema Neuro: Alert and oriented, no focal deficits, moves all extremities, CN 2-12 grossly intact, symmetrical strength b/l upper/lower, sensations intact b/l upper/lower Skin: warm/dry Medical - H&P: Reslt - Impressions Chest x-ray some point of basilar congestion and CT brain unremarkable Medical - H&P: A/P - Narrative A/P Narrative: A: *PEA Arrest while undergoing induction of Anesthesia and airway placement with difficult airway: episode likely 2/2 hypoxia -no arrhythmia's during code -EKG with lateral lead t-wave inversions that resolved on f/u EKG. prolong QT but no arrhythmia's noted -CKMB/Trop neg -Pt is awake/alert/back to baseline *HTN: *GERD: *Hypothyroidism: *Obesity: * P: -monitor closely -f/u Trop in AM -echo pending -ASA -check lipids -cont home meds - -ppx: lovenox/home ppi
[2019-10-15] MEDS ORDERED: ONDANSETRON 4 MG/2 ML VIAL IV PRN (17:51)
[2019-10-15] MEDS ORDERED: HYDROcodone/APAP 5/325MG TABLET PO PRN (17:51)
[2019-10-15] MEDS ORDERED: MAGNESIUM SULFATE 2 GM/50 ML BAG IV PRN (17:51)
[2019-10-15] MEDS ORDERED: PROMETHAZINE 25 MG TABLET PO PRN (17:51)
[2019-10-15] MEDS ORDERED: ASPIRIN 81 MG TAB.CHEW CHEWED ONE (17:51)
[2019-10-15] MEDS ORDERED: SENNOSIDES 1 TABLET PO PRN (17:51)
[2019-10-15] MEDS ORDERED: IPRATROPIUM/ALBUTEROL 3 ML AMPUL.NEB NEB PRN (17:51)
[2019-10-15] MEDS ORDERED: POTASSIUM CHLORIDE 20 MEQ TABLET PO PRN ×2 (17:51)
[2019-10-15] MEDS ORDERED: POLYETHYLENE GLYCOL 3350 17 GM PACKET PO PRN (17:51)
[2019-10-15] MEDS ORDERED: POTASSIUM CHLORIDE 40 MEQ in DEXTROSE 5% IN WATER 500 ML IV PRN (17:51)
[2019-10-15] MEDS ORDERED: FAMOTIDINE 20 MG TABLET PO SCH (21:00)
[2019-10-15] MEDS ORDERED: ALBUTEROL SULFATE 1 PUFF INHALER INH PRN (21:08)
[2019-10-15] MEDS ORDERED: ACETAMINOPHEN 500 MG TABLET PO PRN (21:08)
[2019-10-15] MEDS: DOCUSATE SODIUM 100 MG CAPSULE PO SCH (21:26)
[2019-10-15] MEDS: 0.9 % SODIUM CHLORIDE 10 ML SYRINGE IV SCH (22:00)
[2019-10-16] MEDS: 0.9 % SODIUM CHLORIDE 10 ML SYRINGE IV SCH (05:44)
[2019-10-16 06:34] LABS: ALT/SGPT 18 U/l (0-40); AST/SGOT 17 U/l (0-37); Albumin 3.9 gm/dL (3.2-5.2); Albumin/Globulin Ratio 1.3 (1.0-2.3); Alkaline Phosphatase 95 U/L (39-117); Bilirubin,Direct < 0.2 mg/dL (0.0-0.3); Bilirubin,Total 0.3 mg/dL (0.0-1.0); Blood Urea Nitrogen 23 mg/dl (8-23); Calcium 9.1 mg/dl (8.6-10.4); Carbon Dioxide 24 mmol/L (22-30); Chloride 105 mmol/L (96-108); Glomerular Filtration Rate 66; Glucose 107 mg/dL (70-105); Lactate Dehydrogenase 205 U/L (94-250); Phosphorous 4.6 mg/dL (2.7-4.5); Triglycerides 92 mg/dl (<150); Uric Acid 5.8 mg/dL (2.5-8.0)
[2019-10-16] MEDS ORDERED: LEVOTHYROXINE 100 MCG TABLET PO SCH (07:30)
[2019-10-16] MEDS ORDERED: OMEPRAZOLE 20 MG CAPSULE PO SCH (07:30)
--- NOTE | 2019-10-16 07:34 | Internal Med Progress Note ---
Medical - PN: Subj Patient information: Note initiated : 10/16/19 at 7:31 am Service Date, if different from initiated Date: [] Patient: Tricia Burns 69 y/o F admitted on 10/15/19 for Post CPR. Chief Complaint: [] Interval history: Ms. Burns is a 69 year old F Transferred from the OR to the ED for PEA arrest. Patient was undergoing induction anesthesia and airway was being placed and it sounds like there was s ome difficulty with placement and laryngospasm resulting in oxygen desaturation and then the patient lost pulse while cardiac rhythm maintained on monitor. CPR was initiated for 2-3 minutes, given atropine and epinephrine with ROSC. She was intubated during code and eventually extubated prior to transfer to ED. Laboratory work was done troponin and CK-MB were unremarkable. EKG did show some T wave inversions in the lateral leads, which improved on follow-up EKG in the ED. Chest x-ray with some pulmonary vascular congestion otherwise unremarkable. CT brain unremarkable. She gradually came to and in the ER when I visited her she was completely awake oriented and back to baseline. She is having some chest wall discomfort from the CPR but otherwise no other chest pain. No shortness of breath. No headache nausea vomiting. She does have a sore throat but no other complaints Patient denies any cardiac history. 10/16 Blood pressure did get little low last night in the 90s. Patient does state he does get He is at home on occasion. Her heart rate did go low as well, dropped at one point to high 40s, she was asymptomatic and she does state it does go low at times as well at home. I decreased her lisinopril. She is feeling well and hoping to get out of the hospital soon. Echocardiogram showed normal LV and RV size and function normal valves. Grade 1 diastolic dysfunction. Review of Systems: denies headache/fever/chills/nausea/vomiting/chest or abdominal pain/cough/dy spnea/diarrhea. Otherwise see above. - Constitutional Vitals: Vital Signs Temp Pulse Resp BP Pulse Ox 98.8 F 104 H 17 115/61 98 10/16/19 07:17 10/15/19 17:43 10/16/19 07:17 10/16/19 07:17 10/16/19 07:17 Period Temp Pulse Resp BP Sys/[place] Pulse Ox Last 24 Hr 96.6 F-98.8 F 71-124 12-30 78-177/47-136 89-100 Intake and Output 10/15/19 10/16/19 10/16/19 21:59 05:59 13:59 Intake Total 240 Output Total 400 125 250 Balance -160 -125 -250 Weight 92.805 kg Intake & Output: Intake & Output 10/15/19 10/16/19 10/16/19 21:59 05:59 13:59 Intake Total 240 Output Total 400 125 250 Balance -160 -125 -250 Weight 92.805 kg Intake: Oral 240 Output: Void Amount 400 125 250 Other: Meal Dinner Percent of Meal Consumed 100% Feeding Ability Independent Urine Appearance Cloudy Urine Color Bright Yellow Dark Yellow Exam: General: Alert, Awake, No acute Distress, obese Eyes/N/T: EOMI, , Head/Neck: neck supple, CV: RRR, No murmurs, Pulm: Clear b/l, no wheezing/rhonchi/rales Abd: soft, nontender, +BS x4 Ext: no clubbing/cyanosis/edema Neuro: Alert and oriented, no focal deficits, moves all extremities, Skin: warm/dry Medical - PN: Obj Da - Labs CBC & Chem 7: 10/16/19 04:11 Labs: Abnormal Lab Results 10/16/19 04:11 Glucose 107 H Phosphorus 4.6 H Meds: Medications Acetaminophen (Tylenol) 500 mg PO Q6HP PRN; Protocol PRN Reason: Pain Hydrocodone Bitart/Acetaminophen ([place] 5/325mg) 1 tab PO Q4HP PRN PRN Reason: PAIN LEVEL 3-6 Albuterol Sulfate (Ventolin) 1 puff INH Q4HP PRN PRN Reason: Shortness Of Breath Albuterol/Ipratropium (Duoneb) 3 ml NEB Q4HP PRN PRN Reason: Shortness Of Breath Aspirin (Aspirin) 81 mg PO DAILY [facility] Docusate Sodium (Colace) 100 mg PO BID [facility] Last Admin: 10/15/19 21:26 Dose: 100 mg Documented by: Enoxaparin Sodium (Lovenox) 40 mg SQ DAILY [facility] Famotidine (Pepcid) 20 mg PO BID [facility] Last Admin: 10/15/19 21:26 Dose: 20 mg Documented by: Potassium Chloride 40 meq/ (Dextrose) 520 mls @ 130 mls/hr IV UD PRN PRN Reason: Potassium < 3 Magnesium Sulfate (Magnesium Sulfate) 2 gm in 50 mls @ 50 mls/hr IV UD PRN PRN Reason: Magnesium </= 1.6 Levothyroxine Sodium (Synthroid) 100 mcg PO ACB [facility] Lisinopril (Zestril) 20 mg PO DAILY [facility] Magnesium Oxide (Magnesium Oxide) 400 mg PO DAILY [facility] Omeprazole (Prilosec) 40 mg PO AC [facility] Ondansetron HCl (Zofran) 4 mg IV Q4HP PRN PRN Reason: Nausea And Vomiting Polyethylene Glycol (Miralax) 17 gm PO DAILYP PRN PRN Reason: Constipation Potassium Chloride (Kdur) 40 meq PO UD PRN PRN Reason: Potssium is 3-3.5 Potassium Chloride (Kdur) 40 meq PO UD PRN PRN Reason: Potassium < 3 Promethazine HCl (Phenergan) 0 mg PO Q6HP PRN PRN Reason: Nausea And Vomiting Senna (Senokot) 2 tab PO HSP PRN PRN Reason: Constipation Sodium Chloride (Saline Flush) 10 ml IV Q8 [facility] Last Admin: 10/16/19 05:44 Dose: 10 ml Documented by: Medical - PN: A/P - Time Spent With Patient Total time spent is greater than 50% in coordination of care (as documented) at patient's floor/unit and/or counseling patient: - Narrative A/P Narrative: A: *PEA Arrest while undergoing induction of Anesthesia and airway placement with difficult airway: episode likely 2/2 hypoxia -no arrhythmia's during code -EKG with lateral lead t-wave inversions that resolved on f/u EKG. prolong QT but no arrhythmia's noted -CKMB/Trop neg x2 -Pt is awake/alert/back to baseline -sinus evert upper 40's while sleeping for a little while (pt states it does get low at time at home, asymptomatic) -echo with normal LV/RV fxn/size, no valvular dz or other significant findings *HTN: BP low o/n (pt states it gets down to 90's SBP sometimes, asymptomatic) *HLD: *GERD: *Hypothyroidism: *Obesity: * P: -monitor -ASA/statin -cont home meds -decrease lisinopril for now -ppx: lovenox/home ppi Medical - PN: Qual - VTE Deep Vein Thrombosis/Pulmonary Embolism Present on Admission: No
[2019-10-16] MEDS ORDERED: ENOXAPARIN 40 MG/0.4 ML SYRINGE SQ SCH (09:00)
[2019-10-16] MEDS ORDERED: MAGNESIUM OXIDE 400 MG TABLET PO SCH (09:00)
[2019-10-16] MEDS ORDERED: ASPIRIN 81 MG TAB.CHEW PO SCH (09:00)
[2019-10-16] MEDS ORDERED: LISINOPRIL 20 MG TABLET PO SCH ×2 (09:00)
[2019-10-16] MEDS: DOCUSATE SODIUM 100 MG CAPSULE PO SCH (09:13)
[2019-10-16 09:20] LABS: HDL Cholesterol 89 mg/dl (>40); LDL Cholesterol,Calculated 122 mg/dl (SEE CHART); Non-HDL Cholesterol 132 (LDL TARGET+30); Triglycerides 53 mg/dl (<150)
[2019-10-16] MEDS ORDERED: ATORVASTATIN 40 MG TABLET PO ONE (09:59)
[2019-10-16] MEDS ORDERED: LORATADINE 10 MG TABLET PO ONE (10:10)
--- NOTE | 2019-10-16 11:23 | Discharge Summary ---
Medical - DS: Prov Patient information: Note initiated : 10/16/19 at 11:19 am Service Date, if different from initiated Date: [] Patient: Tricia Burns 69 y/o F admitted on 10/15/19 for Post CPR. Chief Complaint: [] Date of admission: 10/15/19 17:47 Discharge date: 10/16/19 Primary care physician: OREN Saini Consults: 10/15/19 15:44 Consult to Physician [CONS] Stat Comment: Consulting Provider: Victor Manuel Justin Reason For Exam: Physician to Consult Medical - DS: Meds - Discharge Medications Prescriptions: Aspirin 81 mg PO DAILY #30 tab.chew Atorvastatin [Lipitor] 20 mg PO HS #30 tab Lisinopril [Zestril] 10 mg PO DAILY #30 tab Active and Home Medications: Home Medications Acetaminophen [Tylenol Extra Strength] 500 mg PO Q6HP PRN 06/18/18 [History Confirmed 10/15/19 Last Taken 10/14/19] Albuterol Sulfate [Ventolin] 1 puff INH Q4HP PRN 06/18/18 [History Confirmed 10/15/19 Last Taken 10/14/19] Levothyroxine [Synthroid] 100 mcg PO DAILY 06/18/18 [History Confirmed 10/15/19 Last Taken 10/14/19] Loratadine [Claritin] 10 mg PO DAILYP PRN 06/18/18 [History Confirmed 10/15/19 Last Taken 10/14/19] Omeprazole [Prilosec] 40 mg PO QAM 06/18/18 [History Confirmed 10/16/19 Last Taken 10/15/19] Calcium (Oyster Shell) [Oscal] 500 mg PO DAILY 10/30/18 [History Confirmed 10/15/19 Last Taken 10/14/19] Docusate Sodium [Colace] 100 mg PO BIDP PRN 10/30/18 [History Confirmed 10/15/19 Last Taken 10/13/19] Magnesium Oxide 400 mg PO DAILY 10/30/18 [History Confirmed 10/15/19 Last Taken 10/14/19] Lisinopril [Zestril] 20 mg PO DAILY 10/13/19 [History Confirmed 10/15/19 Last Taken 10/15/19] Red Yeast Rice 1,200 mg PO DAILY 10/13/19 [History Confirmed 10/15/19 Last Taken 10/14/19] Home Medications Acetaminophen [Tylenol Extra Strength] 500 mg PO Q6HP PRN 06/18/18 [History Confirmed 10/15/19 Last Taken 10/14/19] Albuterol Sulfate [Ventolin] 1 puff INH Q4HP PRN 06/18/18 [History Confirmed 10/15/19 Last Taken 10/14/19] Levothyroxine [Synthroid] 100 mcg PO DAILY 06/18/18 [History Confirmed 10/15/19 Last Taken 10/14/19] Loratadine [Claritin] 10 mg PO DAILYP PRN 06/18/18 [History Confirmed 10/15/19 Last Taken 10/14/19] Omeprazole [Prilosec] 40 mg PO QAM 06/18/18 [History Confirmed 10/16/19 Last Taken 10/15/19] Calcium (Oyster Shell) [Oscal] 500 mg PO DAILY 10/30/18 [History Confirmed 10/15/19 Last Taken 10/14/19] Docusate Sodium [Colace] 100 mg PO BIDP PRN 10/30/18 [History Confirmed 10/15/19 Last Taken 10/13/19] Magnesium Oxide 400 mg PO DAILY 10/30/18 [History Confirmed 10/15/19 Last Taken 10/14/19] Aspirin 81 mg PO DAILY #30 tab.chew 10/16/19 [Rx Last Taken Unknown] Atorvastatin [Lipitor] 20 mg PO HS #30 tab 10/16/19 [Rx Last Taken Unknown] Lisinopril [Zestril] 10 mg PO DAILY #30 tab 10/16/19 [Rx Last Taken Unknown] Medical - DS: Hosp Hospital Course: A: *PEA Arrest while undergoing induction of Anesthesia and airway placement with d ifficult airway: episode likely 2/2 hypoxia -no arrhythmia's during code -EKG with lateral lead t-wave inversions that resolved on f/u EKG. prolong QT but no arrhythmia's noted -CKMB/Trop neg x2 -Pt is awake/alert/back to baseline -sinus evert upper 40's while sleeping for a little while (pt states it does get low at time at home, asymptomatic) -echo with normal LV/RV fxn/size, no valvular dz or other significant findings *HTN: BP low o/n (pt states it gets down to 90's SBP sometimes, asymptomatic) *HLD: *GERD: *Hypothyroidism: *Obesity: Ms. Burns is a 69 year old F Transferred from the OR to the ED for PEA arrest. Patient was undergoing induction anesthesia and airway was being placed and it sounds like there was some difficulty with placement and laryngospasm resulting in oxygen desaturation and then the patient lost pulse while cardiac rhythm maintained on monitor. CPR was initiated for 2-3 minutes, given atropine and epinephrine with ROSC. She was intubated during code and eventually extubated prior to transfer to ED. Laboratory work was done troponin and CK-MB were unremarkable. EKG did show some T wave inversions in the lateral leads, which improved on follow-up EKG in the ED. Chest x-ray with some pulmonary vascular congestion otherwise unremarkable. CT brain unremarkable. She gradually came to and in the ER when I visited her she was completely awake oriented and back to baseline. She is having some chest wall discomfort from the CPR but otherwise no other chest pain. No shortness of breath. No headache nausea vomiting. She does have a sore throat but no other complaints Patient denies any cardiac history. 10/16 Blood pressure did get little low last night in the 90s. Patient does state he does get He is at home on occasion. Her heart rate did go low as well, dropped at one point to high 40s, she was asymptomatic and she does state it does go low at times as well at home. I decreased her lisinopril. She is feeling well and hoping to get out of the hospital soon. Echocardiogram showed normal LV and RV size and function normal valves. Grade 1 diastolic dysfunction. Blood pressure good on the decreased lisinopril. Patient improved more quickly than expected. will f/u with PCP and Cardiology and Dr. De La Torre. Discharge diagnosis: PEA arrest during anesthesia from hypoxic event Secondary discharge diagnosis: Hyperlipidemia hypertension GERD hypothyroidism obesity - Time Spent with Patient Total time spent providing and/or coordinating discharge services: Greater than 30 minutes Medical - DS: Exam - Constitutional Vitals: Vital Signs Temp Pulse Resp BP BP Pulse Ox 10/16/19 07:17 98.8 F 17 115/61 98 10/16/19 07:01 30 H 92/54 96 10/16/19 06:01 18 92/55 94 10/16/19 05:01 19 104/53 95 10/16/19 04:01 15 106/65 96 10/16/19 03:01 18 86/58 93 10/16/19 02:11 19 93 10/16/19 02:01 22 86/56 92 10/16/19 02:00 94 10/16/19 01:03 18 89/49 94 10/16/19 01:01 98.1 F 20 78/47 93 10/15/19 23:31 25 H 119/102 95 10/15/19 23:16 14 96/68 97 10/15/19 23:01 18 94/59 93 10/15/19 22:46 23 H 103/58 92 10/15/19 22:31 22 98/59 91 10/15/19 22:16 24 H 112/61 92 10/15/19 22:01 23 H 107/62 91 10/15/19 21:46 22 133/67 92 10/15/19 21:31 27 H 117/69 91 10/15/19 21:16 30 H 99/56 92 10/15/19 21:01 24 H 104/91 89 L 10/15/19 20:55 15 96 10/15/19 20:46 28 H 115/71 92 10/15/19 20:31 97.8 F 17 101/76 95 10/15/19 20:20 28 H 126/76 96 10/15/19 18:01 21 168/88 91 10/15/19 17:47 92 10/15/19 17:43 96.6 F L 104 H 30 H 150/70 94 10/15/19 17:13 104 H 30 H 150/70 94 10/15/19 17:07 101 H 25 H 150/70 95 10/15/19 16:47 95 H 26 H 147/59 97 10/15/19 16:31 102 H 25 H 132/74 92 10/15/19 16:17 89 24 H 124/47 96 10/15/19 16:02 81 15 137/65 98 10/15/19 15:46 100 H 152/136 97 10/15/19 15:43 89 16 146/78 98 10/15/19 15:32 71 20 146/78 99 10/15/19 15:17 76 18 127/108 98 10/15/19 15:12 80 18 134/81 100 10/15/19 15:01 92 H 17 134/81 99 10/15/19 14:49 101 H 17 136/84 99 10/15/19 14:31 94 H 19 115/49 99 10/15/19 14:17 83 18 130/77 99 10/15/19 14:02 82 17 136/71 98 10/15/19 13:49 73 14 140/73 97 10/15/19 13:46 95 H 14 140/73 94 10/15/19 13:38 82 17 103/84 97 10/15/19 13:16 97 H 131/96 98 10/15/19 13:13 94 H 123/54 99 10/15/19 13:01 104 H 18 123/54 98 10/15/19 12:46 103 H 137/81 94 10/15/19 12:32 105 H 12 130/66 94 10/15/19 12:28 109 H 23 H 130/66 93 10/15/19 12:26 108 H 18 130/66 92 10/15/19 12:08 96.6 F L 124 H 20 177/108 97 Intake and Output 10/15/19 10/16/19 10/16/19 21:59 05:59 13:59 Intake Total 240 300 Output Total 400 125 525 Balance -160 -125 -225 Intake: Oral 240 300 Output: Void Amount 400 125 525 Other: Meal Dinner Breakfast Percent of Meal Consumed 100% 75% Feeding Ability Independent Independent Urine Appearance Cloudy Urine Color Bright Yellow Dark Yellow Weight 92.805 kg Medical - DS: Data Labs on day of discharge: Labs from last 24 hours 10/16/19 10/16/19 10/15/19 04:11 04:11 18:54 Sodium 142 Potassium 3.7 Chloride 105 Carbon Dioxide 24 Anion Gap 13.0 BUN 23 Creatinine 0.9 GFR Calculation 66 Glucose 107 H Uric Acid 5.8 Calcium 9.1 Phosphorus 4.6 H Magnesium 2.1 Total Bilirubin 0.3 Direct Bilirubin < 0.2 GGT 11 AST 17 ALT 18 Alkaline Phosphatase 95 Lactate Dehydrogenase 205 Troponin T < 0.01 Total Protein 6.9 Albumin 3.9 Globulin 3.0 Albumin/Globulin Ratio 1.3 Triglycerides 92 53 Cholesterol 221 H LDL Cholesterol, Calc 122 H Non-HDL Cholesterol 132 H HDL Cholesterol 89 10/15/19 18:54 Sodium Potassium Chloride Carbon Dioxide Anion Gap BUN Creatinine GFR Calculation Glucose Uric Acid Calcium Phosphorus Magnesium Total Bilirubin Direct Bilirubin GGT AST ALT Alkaline Phosphatase Lactate Dehydrogenase Troponin T Total Protein Albumin Globulin Albumin/Globulin Ratio Triglycerides Pending Cholesterol Pending LDL Cholesterol, Calc Pending Non-HDL Cholesterol Pending HDL Cholesterol Pending Medical - DS: A/P - Patient/Caregiver Discharge Instructions Activity: increase activity as tolerated Diet: Cardiac Additional Instructions: Referral to see cardiology 5-10 days for PEA arrest-- A referral has been sent to [facility] They will contact you to schedule an appointment. Maintain a log of your blood pressure taken daily and bring to PCP and supervisory historian Prescriptions: Atorvastatin [Lipitor] 20 mg PO HS #30 tab Lisinopril [Zestril] 10 mg PO DAILY #30 tab - Follow up Plan Follow up with: Allison Cotton ARNP [Primary Care Provider] - 10/29/19 8:00 am (This appointment is with Britta Barnes) Jimmy De La Torre MD [Physician] - 10/26/19 8:40 am Disposition: Home, Self-Care Care Plan Goals: This discharge packet is provided to you to help keep you informed about your care. We want to ensure you get everything you need when you go home. You will also be receiving a call from us in a few days to follow up with you and see how you are doing since your discharge. This gives us a chance to listen to any concerns you maybe experiencing since you were discharged or any additional needs you may have, as well as providing us feedback on your care experience. We strive to always provide excellent care and thank you for your feedback and for choosing [facility]. Prognosis: Fair Rehab Potential: Fair Overall status at discharge: patient is back to baseline Medical - DS: Qual - VTE Deep Vein Thrombosis/Pulmonary Embolism Present on Admission: No
--- NOTE | 2019-10-16 11:37 | Orthopedic Progress Note ---
Subjective Patient information: Note initiated : 10/16/19 at 11:35 am Service Date, if different from initiated Date: [] Patient: Tricia Burns 69 y/o F admitted on 10/15/19 for Post CPR. Chief Complaint: [] Objective Vital signs: Vital Signs Temp Pulse Resp BP BP Pulse Ox 10/16/19 07:17 98.8 F 17 115/61 98 10/16/19 07:01 30 H 92/54 96 10/16/19 06:01 18 92/55 94 10/16/19 05:01 19 104/53 95 10/16/19 04:01 15 106/65 96 10/16/19 03:01 18 86/58 93 10/16/19 02:11 19 93 10/16/19 02:01 22 86/56 92 10/16/19 02:00 94 10/16/19 01:03 18 89/49 94 10/16/19 01:01 98.1 F 20 78/47 93 10/15/19 23:31 25 H 119/102 95 10/15/19 23:16 14 96/68 97 10/15/19 23:01 18 94/59 93 10/15/19 22:46 23 H 103/58 92 10/15/19 22:31 22 98/59 91 10/15/19 22:16 24 H 112/61 92 10/15/19 22:01 23 H 107/62 91 10/15/19 21:46 22 133/67 92 10/15/19 21:31 27 H 117/69 91 10/15/19 21:16 30 H 99/56 92 10/15/19 21:01 24 H 104/91 89 L 10/15/19 20:55 15 96 10/15/19 20:46 28 H 115/71 92 10/15/19 20:31 97.8 F 17 101/76 95 10/15/19 20:20 28 H 126/76 96 10/15/19 18:01 21 168/88 91 10/15/19 17:47 92 10/15/19 17:43 96.6 F L 104 H 30 H 150/70 94 10/15/19 17:13 104 H 30 H 150/70 94 10/15/19 17:07 101 H 25 H 150/70 95 10/15/19 16:47 95 H 26 H 147/59 97 10/15/19 16:31 102 H 25 H 132/74 92 10/15/19 16:17 89 24 H 124/47 96 10/15/19 16:02 81 15 137/65 98 10/15/19 15:46 100 H 152/136 97 10/15/19 15:43 89 16 146/78 98 10/15/19 15:32 71 20 146/78 99 10/15/19 15:17 76 18 127/108 98 10/15/19 15:12 80 18 134/81 100 10/15/19 15:01 92 H 17 134/81 99 10/15/19 14:49 101 H 17 136/84 99 10/15/19 14:31 94 H 19 115/49 99 10/15/19 14:17 83 18 130/77 99 10/15/19 14:02 82 17 136/71 98 10/15/19 13:49 73 14 140/73 97 10/15/19 13:46 95 H 14 140/73 94 10/15/19 13:38 82 17 103/84 97 10/15/19 13:16 97 H 131/96 98 10/15/19 13:13 94 H 123/54 99 10/15/19 13:01 104 H 18 123/54 98 10/15/19 12:46 103 H 137/81 94 10/15/19 12:32 105 H 12 130/66 94 10/15/19 12:28 109 H 23 H 130/66 93 10/15/19 12:26 108 H 18 130/66 92 10/15/19 12:08 96.6 F L 124 H 20 177/108 97 Intake and Output 10/15/19 10/16/19 10/16/19 21:59 05:59 13:59 Intake Total 240 300 Output Total 400 125 925 Balance -160 -012 -223 Intake: Oral 240 300 Output: Void Amount 400 125 925 Other: Meal Dinner Breakfast Percent of Meal Consumed 100% 75% Feeding Ability Independent Independent Urine Appearance Cloudy Urine Color Bright Yellow Pale Urine Odor Normal Weight 204 lb 9.6 oz Intake & Output: Intake & Output 10/15/19 10/16/19 10/16/19 21:59 05:59 13:59 Intake Total 240 300 Output Total 400 125 925 Balance -160 -125 -226 Weight 204 lb 9.6 oz Intake: Oral 240 300 Output: Void Amount 400 125 925 Other: Meal Dinner Breakfast Percent of Meal Consumed 100% 75% Feeding Ability Independent Independent Urine Appearance Cloudy Urine Color Bright Yellow Pale Urine Odor Normal Dressing: Yes clean, Yes dry Weight bearing status: full Extremities exam IM: Yes Foot pink and warm - Labs CBC & BMP: 10/16/19 04:11 Assessment and Plan (1) Cardiopulmonary arrest no apparent sequalae from code/ May go home . Will see in 10 days Status: Acute - Narrative A/P Narrative: see above
[2019-10-17] MEDS ORDERED: ATORVASTATIN 40 MG TABLET PO SCH (21:00)
== END 2019-10-16 14:11 | disposition home or self-care (01) | DRG 189 ==
LOC: ED 12:07 → ICU 17:35
PROVIDERS: ADMIT Internal Medicine; ATTEND Internal Medicine